=== PATIENT | female | born 1995 | race Caucasian/White ===

== ENCOUNTER 2017-06-28 14:02 | Emergency (ER) | payer OTHER ==
[2017-06-28 14:21] VITALS: BP 116/70
--- NOTE | 2017-06-28 15:12 | UC ---
Respiratory Complaint HPI - HPI Summary HPI Summary: chills head pain frontal sinus congestion, fatigue worsen over past several days - History of Current Complaint Chief Complaint: UCRespiratory Stated Complaint: LIGHTHEADED Time Seen by Provider: 06/28/17 14:58 Hx Obtained From: Patient Hx Last Menstrual Period: 05/31/17 ?: No Onset/Duration: Sudden Onset, Lasting Days - 4, Still Present, Worse Since - past 2 days Timing: Constant Severity Initially: Mild Severity Currently: Moderate Pain Intensity: 6 Pain Scale Used: 0-10 Numeric Aggravating Factors: Nothing Alleviating Factors: Other - no relief with otc medications Associated Signs And Symptoms: Positive: Chills, Nasal Congestion, Sinus Discomfort - Allergies/Home Medications Allergies/Adverse Reactions: Allergies Allergy/AdvReac Type Severity Reaction Status Date / Time No Known Allergies Allergy Verified 06/28/17 14:12 Home Medications: Home Medications Dextromethorphan-Phenylephrine [Day Time Multi-Symptom Co 10-5-325 mg] 1 cap PO PRN 06/28/17 [History] Ibuprofen [Ibuprofen 200] 200 mg PO DAILY PRN 06/28/17 [History Confirmed ] Oral Contraceptive 1 tab PO DAILY 06/28/17 [History Confirmed 06/28/17] PMH/Surg Hx/FS Hx/Imm Hx Previously Healthy: Yes - Surgical History Surgical History: None - Family History Known Family History: Positive: None - Social History Occupation: Employed Full-time Lives: With Family Alcohol Use: None Substance Use Type: None Smoking Status (MU): Never Smoked Tobacco Household Exposure Type: Cigarettes - Immunization History Most Recent Influenza Vaccination: NONE Review of Systems Constitutional: Negative Skin: Negative Eyes: Negative ENT: Negative, Ear Ache, Nasal Discharge, Sinus Congestion, Sinus Pain/ Tenderness Respiratory: Negative Cardiovascular: Negative Gastrointestinal: Negative Genitourinary: Negative Motor: Negative Neurovascular: Negative Musculoskeletal: Negative Neurological: Headache Psychological: Negative Is Patient Immunocompromised?: No All Other Systems Reviewed And Are Negative: Yes Physical Exam Triage Information Reviewed: Yes Appearance: Well-Appearing, Well-Nourished, Pain Distress - mild Vital Signs: Initial Vital Signs Temp 97.9 F 06/28/17 14:14 Pulse 69 06/28/17 14:14 Resp 18 06/28/17 14:14 BP 116/70 06/28/17 14:14 Pulse Ox 99 06/28/17 14:14 Vital Signs Reviewed: Yes Eye Exam: Normal Eyes: Positive: Conjunctiva Clear ENT Exam: Normal ENT: Positive: Normal ENT inspection, Hearing grossly normal, Pharynx normal, Nasal congestion, Nasal drainage, TMs normal, Sinus tenderness, Uvula midline. Negative: Tonsillar swelling, Tonsillar exudate, Trismus, Muffled voice, Hoarse voice Dental Exam: Normal Neck exam: Normal Neck: Positive: Supple, Nontender, No Lymphadenopathy Respiratory Exam: Normal Respiratory: Positive: Chest non-tender, Lungs clear, Normal breath sounds, No respiratory distress, No accessory muscle use Cardiovascular Exam: Normal Cardiovascular: Positive: RRR, No Murmur, Pulses Normal, Brisk Capillary Refill Musculoskeletal Exam: Normal Musculoskeletal: Positive: Strength Intact, ROM Intact, No Edema Neurological Exam: Normal Neurological: Positive: Alert, Muscle Tone Normal Psychological Exam: Normal Skin Exam: Normal UC Diagnostic Evaluation - Laboratory O2 Sat by Pulse Oximetry: 99 Respiratory Course/Dx - Course Course Of Treatment: Flonase Augmentin, increase fluids, tylenol, ibuprofen, rest, follow with pcp - Differential Dx/Diagnosis Provider Diagnoses: Acute Rhinosinusitis Discharge - Discharge Plan Condition: Stable Disposition: HOME Prescriptions: Amoxicillin/Clavulanate TAB* [Augmentin TAB 875*] 875 mg PO BID #20 tab Fluticasone NASAL SPRAY 50MCG* [Flonase NASAL SPRAY 50MCG*] 2 spray BOTH NARES DAILY #1 btl Patient Education Materials: Rhinosinusitis (ED), How to Use Nasal [place] (ED) Forms: *School Release Referrals: [facility] [place] [facility] [Outside] - If Needed
== END 2017-06-28 15:22 | disposition home or self-care (01) ==
LOC: UCCORT 14:02
DX: J01.90 Acute sinusitis, unspecified (principal); Z77.22 Contact with and (suspected) exposure to environmental tobacco smoke (acute) (chronic)
CPT/HCPCS: 99202; G0463

== ENCOUNTER 2017-08-05 15:59 | Emergency (ER) | payer SELFPAY ==
[2017-08-05 16:23] VITALS: BP 113/61
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
== END 2017-08-05 16:47 | disposition home or self-care (01) ==
LOC: UCCORT 15:59
DX: S06.0X0A Concussion without loss of consciousness, initial encounter (principal); R51 Headache; V89.2XXA Person injured in unspecified motor-vehicle accident, traffic, initial encounter; Y92.9 Unspecified place or not applicable
CPT/HCPCS: 99212; G0463

== ENCOUNTER 2017-08-17 15:45 | Emergency (ER) | payer SELFPAY ==
[2017-08-17 16:15] VITALS: BP 103/67
--- NOTE | 2017-08-17 17:16 | ED ---
Abdominal Pain/Female - HPI Summary HPI Summary: 22 yr old female with onset of diarrhea and abdominal pain last night. She has had three episodes of diarrhea watery today and has had crampy left side abdominal pain that is presently gone. She has not had vomiting. She denies having dizziness. She denies having dysuria, frequency. Denies vaginal discharge or bleeding. Pain not worse with movement. Denies fever. - History of Current Complaint Chief Complaint: UCAbdominalPain Stated Complaint: ABDOMINAL PAIN Time Seen by Provider: 08/17/17 17:00 Hx Last Menstrual Period: "I don't really remember." Allergies/Adverse Reactions: Allergies Allergy/AdvReac Type Severity Reaction Status Date / Time No Known Allergies Allergy Verified 08/17/17 16:10 Home Medications: Home Medications NK [No Home Medications Reported] 08/17/17 [History Confirmed 08/17/17] PMH/Surg Hx/FS Hx/Imm Hx Infectious Disease History: No Infectious Disease History: Denies: Traveled Outside the [place] in Last 30 Days - Family History Known Family History: Positive: None - Social History Occupation: Employed Full-time Alcohol Use: None Substance Use Type: Reports: None Smoking Status (MU): Never Smoked Tobacco Review of Systems Constitutional: Negative Positive: Abdominal Pain, Diarrhea. Negative: Vomiting, Nausea Negative: dysuria, discharge, frequency, hematuria, urgency All Other Systems Reviewed And Are Negative: Yes Physical Exam Triage Information Reviewed: Yes Vital Signs On Initial Exam: Initial Vitals Temp Pulse Resp BP Pulse Ox 98.7 F 74 16 103/67 99 08/17/17 16:09 08/17/17 16:09 08/17/17 16:09 08/17/17 16:09 08/17/17 16:09 Vital Signs Reviewed: Yes Appearance: Positive: Well-Appearing, No Pain Distress Skin: Positive: Warm, Skin Color Reflects Adequate Perfusion Eyes: Positive: EOMI ENT: Positive: Pharynx normal, TMs normal Neck: Positive: Nontender Respiratory/Lung Sounds: Positive: Clear to Auscultation, Breath Sounds Present Cardiovascular: Positive: RRR. Negative: Murmur Abdomen Description: Positive: Nontender, Soft. Negative: Distended Musculoskeletal: Positive: Strength/ROM Intact Neurological: Positive: Sensory/Motor Intact, Alert, Oriented to Person Place, Time, CN Intact II-III Psychiatric: Positive: Normal - Rodrigo Coma Scale Best Eye Response: 4 - Spontaneous Best Motor Response: 6 - Obeys Commands Best Verbal Response: 5 - Oriented Diagnostics - Vital Signs Vital Signs Temp Pulse Resp BP Pulse Ox 08/17/17 16:09 98.7 F 74 16 103/67 99 - Laboratory Lab Results: Lab Results 08/17/17 08/17/17 Range/Units 16:52 16:54 POC Urine Color Yellow POC Urine Clarity Clear POC Urine pH 6.0 (5-9) POC Ur Specif [place] 1.015 (1.010-1.030) POC Urine Protein Negative (Negative) POC Ur Glucose (UA) Negative (Negative) POC Urine Ketones Negative (Negative) POC Urine Blood Negative (Negative) POC Urine Nitrite Negative (Negative) POC Urine Bilirubin Negative (Negative) POC Urine Urobilinogen 0.2 (Negative) POC U Leukocyte Esteras Negative (Negative) POC Ur Test Negative (Negative) Lab Statement: Any lab studies that have been ordered have been reviewed, and results considered in the medical decision making process. Abdominal Pain Fem Course/Dx - Course Course Of Treatment: 22 yr old with diarrhea and no abdomial pain presently. She is being discharged home, and if her pain returns and becomes worse she is to go to the ER for further work up. - Diagnoses Provider Diagnoses: Diarrhea, Abdominal pain Discharge - Discharge Plan Condition: Good Disposition: HOME Patient Education Materials: Acute Diarrhea (ED), Abdominal Pain (ED) Referrals: [facility] [place] [facility] [Outside] No Primary Care Phys,NOPCP [Primary Care Provider] -
== END 2017-08-17 17:19 | disposition home or self-care (01) ==
LOC: UCCORT 15:45
DX: R19.7 Diarrhea, unspecified (principal); R10.9 Unspecified abdominal pain; Z32.02 Encounter for pregnancy test, result negative
CPT/HCPCS: 81003; 84702; 99211; G0463

== ENCOUNTER 2018-05-27 14:51 | Emergency (ER) | payer OTHER ==
[2018-05-27 15:28] VITALS: BP 111/60
[2018-05-27] MEDS ORDERED: Dexamethasone IV* 4 MG/ML 1 ML (4 MG) IV SLOW PU ONE (16:19)
--- NOTE | 2018-05-27 16:25 | UC ---
UC General HPI - HPI Summary HPI Summary: SORE THROAT SINCE YESTERDAY AND LOSS OF VOICE. - History of Current Complaint Chief Complaint: UCRespiratory Stated Complaint: ST Time Seen by Provider: 05/27/18 16:14 Hx Obtained From: Patient Hx Last Menstrual Period: 05/10/18 Onset/Duration: Gradual Onset Timing: Constant Pain Intensity: 3 Associated Signs & Symptoms: Negative: Fever, SOB - Allergy/Home Medications Allergies/Adverse Reactions: Allergies Allergy/AdvReac Type Severity Reaction Status Date / Time No Known Allergies Allergy Verified 08/17/17 16:10 Home Medications: Home Medications Ibuprofen TAB* [Motrin TAB* 400 MG] 400 mg PO ONCE PRN 05/27/18 [History Confirmed 05/27/18] PMH/Surg Hx/FS Hx/Imm Hx Previously Healthy: Yes - Surgical History Surgical History: None - Family History Known Family History: Positive: None - Social History Occupation: Employed Full-time Lives: With Family Alcohol Use: None Substance Use Type: None Smoking Status (MU): Never Smoked Tobacco Household Exposure Type: Cigarettes - Immunization History Most Recent Influenza Vaccination: NONE Vaccination Up to Date: Yes Review of Systems Constitutional: Negative Skin: Negative Eyes: Negative ENT: Sore Throat Respiratory: Negative Cardiovascular: Negative Gastrointestinal: Negative Genitourinary: Negative Motor: Negative Neurovascular: Negative Musculoskeletal: Negative Neurological: Negative Psychological: Negative Is Patient Immunocompromised?: No All Other Systems Reviewed And Are Negative: Yes Physical Exam Triage Information Reviewed: Yes Appearance: Well-Appearing Vital Signs: Initial Vital Signs Temp 98.7 F 05/27/18 15:22 Pulse 60 05/27/18 15:22 Resp 18 05/27/18 15:22 BP 111/60 05/27/18 15:22 Pulse Ox 100 05/27/18 15:22 Vital Signs Reviewed: Yes Eyes: Positive: Conjunctiva Clear ENT: Positive: Pharyngeal erythema, TMs normal, Hoarse voice, Uvula midline. Negative: Nasal congestion, Nasal drainage, Tonsillar swelling, Tonsillar exudate, Trismus, Muffled voice Neck: Positive: Supple, Nontender, No Lymphadenopathy Respiratory: Positive: Lungs clear, Normal breath sounds Cardiovascular: Positive: RRR, No Murmur Abdomen Description: Positive: Nontender, No Organomegaly, Soft Bowel Sounds: Positive: Present Musculoskeletal: Positive: ROM Intact Neurological: Positive: Alert Psychological: Positive: Age Appropriate Behavior Skin Exam: Normal Diagnostics - Laboratory Diagnostic Studies Completed/Ordered: RAPID STREP=NEG Course/Dx - Differential Dx - Multi-Symptom Provider Diagnoses: SORE THROAT. LARYNGITIS Discharge - Sign-Out/Discharge Documenting (check all that apply): Patient Departure All imaging exams completed and their final reports reviewed: No Studies - Discharge Plan Condition: Stable Disposition: HOME Patient Education Materials: Laryngitis (ED), Pharyngitis (ED) Forms: *Work Release Referrals: Shiraz Sellers PA [Primary Care Provider] - 7 Days - Billing Disposition and Condition Condition: STABLE Disposition: Home
== END 2018-05-27 16:45 | disposition home or self-care (01) ==
LOC: UCCORT 14:51
DX: J02.9 Acute pharyngitis, unspecified (principal); J04.0 Acute laryngitis
CPT/HCPCS: 87651; 99211; G0463; J1100

== ENCOUNTER 2018-07-02 08:16 | Emergency (ER) | payer OTHER ==
--- OUTSIDE RECORDS SUMMARY | 2018-07-02 08:30 | XMS REPORT | Continuity of Care Document ---
:1995 Author Organization [facility] Care Team Providers Name Role Phone JAYME HEATON Admitting Physician JAYME HEATON Attending Physician Allergies and Intolerances No Known Allergies Medications Patient Not On Self-Medication Problems Code Code System Problem Name Start Date End Date Status 45270728 SNOMED-CT Anxiety U Active Procedures No data in the system Results No data in the system Social History Code Code System Social History Observation Description Dates Observed 308406209 SNOMED CT Current Smoking Status Never smoker UNK AdministrativeGender Sex Assigned At Unknown Vital Signs Code Code System Vitals Value Date 8310-5 INC Body Temperature 97.4 [degF] 06/07/2018 8865-8 INC Pulse Rate 64 {beats}/min 06/07/2018 9279-1 INC Respiratory Rate 18 /min 06/07/2018 53258-1 INC O2% BldC Oximetry 97 % 06/07/2018 8480-6 LOINC BP Systolic 123 mm[Hg] 06/07/2018 8462-4 LOINC BP Diastolic 75 mm[Hg] 06/07/2018 8302-2 LOINC Height 66 [in_i] 06/07/2018 57734-8 LOINC Weight 69.54 kg 06/07/2018 3140-1 INC Body surface area Derived from formula 1.79 m2 06/07/2018 93140-2 INC BMI (Body Mass Index) 24.9 kg/m2 06/07/2018 Goals Section No data in the system Health Concerns No data in the systemEncounter Diagnosis Date Code Code System Diagnosis Status J06.9 ICD10 ACUTE UP RESPIRATORY INFECTION UNS Active Advance Directives PT STATES NO ADVANCE DIRECTIVES Directive Type Effective Date Storage Administrator Notes Supporting Document Name Address Phone No Directive Type 02/10/2017 1:44:00 Not Specified Not Specified Not Specified None No specified PM *RHIO - CONSENT IS YES Directive Type Effective Date Storage Administrator Notes Supporting Document Name Address Phone No Directive Type 07/21/2016 Not Specified Not Specified Not Specified None No specified 12:36:10 PM Family History Patient has no knowledge of family history Functional Status Code Functional Condition Code System Date Status Independent adls SNOMED CT 06/07/2018 Active Appears well [facility]ished[facility] 06/07/2018 Active Immunizations Vaccine Code Code System Vaccine Name Date Status UTD Completed Medical Equipment No data in the system Mental Status Code Cognitive Condition Code System Date Status Oriented x [address] 06/07/2018 Active No acute distress [facility] 06/07/2018 Active Alert [facility] 06/07/2018 Active Assessment and Plan Assessments No data in the systemPlan Of Treatment No data in the systemPending Tests No data in the system Hospital Discharge Instructions No data in the system Reason for Visit Reason for Visit Cough
[2018-07-02 08:34] VITALS: BP 113/62
--- NOTE | 2018-07-02 08:56 | UC ---
Back Pain HPI - HPI Summary HPI Summary: Patient was moving boxes and felt a pull on the left side of her back, she has full ROM but is in pain. - History of Current Complaint Chief Complaint: UCBackPain Stated Complaint: LOW BACK COMPLAINT Time Seen by Provider: 07/02/18 08:34 Hx Obtained From: Patient Hx Last Menstrual Period: 06/06/18 ?: No Onset/Duration: Sudden Onset, Lasting Days - 1 Timing: Constant Severity Initially: Severe Severity Currently: Severe Pain Intensity: 8 Character: Aching, Stiffness Aggravating Factor(s): Movement Alleviating Factor(s): Heat Associated Signs And Symptoms: Positive: Negative - Allergies/Home Medications Allergies/Adverse Reactions: Allergies Allergy/AdvReac Type Severity Reaction Status Date / Time No Known Allergies Allergy Verified 07/02/18 08:29 Home Medications: Home Medications Ibuprofen TAB* [Advil TAB*] 200 mg PO Q6H PRN 07/02/18 [History Confirmed ] PMH/Surg Hx/FS Hx/Imm Hx Previously Healthy: Yes - Surgical History Surgical History: None - Family History Known Family History: Positive: None Negative: Hypertension - Social History Alcohol Use: None Substance Use Type: None Smoking Status (MU): Never Smoked Tobacco Household Exposure Type: Cigarettes - Immunization History Most Recent Influenza Vaccination: NONE Vaccination Up to Date: Yes Review of Systems All Other Systems Reviewed And Are Negative: Yes Musculoskeletal: Positive: Arthralgia, Myalgia Is Patient Immunocompromised?: No Physical Exam Triage Information Reviewed: Yes Appearance: Well-Appearing, Well-Nourished, Pain Distress Vital Signs: Initial Vital Signs Temp 97.8 F 07/02/18 08:30 Pulse 57 07/02/18 08:30 Resp 14 07/02/18 08:30 BP 113/62 07/02/18 08:30 Pulse Ox 100 07/02/18 08:30 Vital Signs Reviewed: Yes Eye Exam: Normal ENT Exam: Normal Dental Exam: Normal Neck exam: Normal Cardiovascular Exam: Normal Abdominal Exam: Normal Musculoskeletal: Positive: Strength Intact, ROM Intact, No Edema Neurological Exam: Normal Psychological Exam: Normal Skin Exam: Normal Back Pain Course/Dx - Course Course Of Treatment: hx obtained, exam performed, meds reviewed, educated on OTC NSAIDS for muscle pain - Differential Dx/Diagnosis Differential Diagnosis/HQI/PQRI: Strain, Sprain Provider Diagnosis: Muscle strain of right upper back Discharge - Sign-Out/Discharge Documenting (check all that apply): Patient Departure All imaging exams completed and their final reports reviewed: No Studies - Discharge Plan Condition: Stable Disposition: HOME Patient Education Materials: Muscle Strain (ED) Forms: *Work Release Referrals: Shiraz Sellers PA [Primary Care Provider] - Additional Instructions: 1. Use heat to the back multiple times a day. 2. Ibuprofen 400- 60 0mg every 4-6 hours for the next few days. always take with a couple bites of food. 3. Take it easy for the next few days, follow up if not improving int he next 48 hours - Billing Disposition and Condition Condition: STABLE Disposition: Home
== END 2018-07-02 09:08 | disposition home or self-care (01) ==
LOC: UCCORT 08:16
DX: S23.3XXA Sprain of ligaments of thoracic spine, initial encounter (principal); X50.0XXA Overexertion from strenuous movement or load, initial encounter; Y93.89 Activity, other specified; Y92.9 Unspecified place or not applicable
CPT/HCPCS: 99211; G0463

== ENCOUNTER 2018-07-28 09:33 | Emergency (ER) | payer OTHER ==
[2018-07-28 13:08] VITALS: BP 101/55
--- NOTE | 2018-07-28 13:21 | UC ---
Throat Pain/Nasal Shashank HPI - HPI Summary HPI Summary: Pt presents with sudden onset of nasal congestion, sinus pressure and generalized malaise x 1 day. Pt has not tried any otc medication to relieve symptoms. - History of Current Complaint Chief Complaint: UCGeneralIllness Stated Complaint: HEAD COLD,HEADACHE Time Seen by Provider: 07/28/18 13:04 Hx Obtained From: Patient Hx Last Menstrual Period: 07/06/18 ?: No Onset/Duration: Sudden Onset Severity: Severe Pain Intensity: 9 Cough: None Associated Signs & Symptoms: Positive: Sinus Discomfort, Nasal Discharge - Epiglottits Risk Factors Epiglottis Risk Factors: Sudden Onset - Allergies/Home Medications Allergies/Adverse Reactions: Allergies Allergy/AdvReac Type Severity Reaction Status Date / Time No Known Allergies Allergy Verified 07/28/18 13:05 PMH/Surg Hx/FS Hx/Imm Hx Previously Healthy: Yes - Surgical History Surgical History: None - Family History Known Family History: Positive: None Negative: Hypertension - Social History Occupation: Employed Full-time Lives: With Family Alcohol Use: None Substance Use Type: None Smoking Status (MU): Never Smoked Tobacco Have You Smoked in the Last Year: No Household Exposure Type: Cigarettes - Immunization History Most Recent Influenza Vaccination: NONE Vaccination Up to Date: Yes Review of Systems All Other Systems Reviewed And Are Negative: Yes Constitutional: Positive: Chills, Fatigue Skin: Positive: Negative Eyes: Positive: Negative ENT: Positive: Sore Throat, Sinus Congestion, Sinus Pain/Tenderness Respiratory: Positive: Cough Cardiovascular: Positive: Negative Gastrointestinal: Positive: Negative Genitourinary: Positive: Negative Motor: Positive: Negative Neurovascular: Positive: Negative Musculoskeletal: Positive: Negative Neurological: Positive: Headache Psychological: Positive: Negative Is Patient Immunocompromised?: No Physical Exam Triage Information Reviewed: Yes Appearance: Ill-Appearing Vital Signs: Initial Vital Signs Temp 98.1 F 07/28/18 13:03 Pulse 61 07/28/18 13:03 Resp 18 07/28/18 13:03 BP 101/55 07/28/18 13:03 Pulse Ox 100 07/28/18 13:03 Vital Signs Reviewed: Yes Eye Exam: Normal ENT: Positive: Nasal congestion, Sinus tenderness Dental Exam: Normal Neck exam: Normal Respiratory Exam: Normal Cardiovascular Exam: Normal Musculoskeletal Exam: Normal Neurological Exam: Normal Psychological Exam: Normal Skin Exam: Normal Throat Pain/Nasal Course/Dx - Differential Dx/Diagnosis Differential Diagnosis/HQI/PQRI: Sinusitis, Tonsillitis, URI Provider Diagnosis: Acute viral syndrome Discharge - Sign-Out/Discharge Documenting (check all that apply): Patient Departure All imaging exams completed and their final reports reviewed: No Studies - Discharge Plan Condition: Stable Disposition: HOME Prescriptions: Guaifenesin/Pseudoephedrne HCl [Mucinex D ER 600-60 mg Tablet] 1 each PO Q12H # 14 tab.er.12h Patient Education Materials: Viral Syndrome (ED) Forms: *Work Release Referrals: Shiraz Sellers PA [Primary Care Provider] - If Needed - Billing Disposition and Condition Condition: STABLE Disposition: Home - Attestation Statements Provider Attestation: Per institutional requirements, I have reviewed the chart, however, I was not consulted specifically or made aware of this patient by the midlevel provider. I did not personally evaluate, interact with , or disposition this patient.
== END 2018-07-28 13:27 | disposition home or self-care (01) ==
LOC: UCCORT 09:33
DX: B34.9 Viral infection, unspecified (principal)
CPT/HCPCS: 99211; G0463

== ENCOUNTER 2018-07-30 08:04 | Emergency (ER) | payer OTHER ==
[2018-07-30 08:15] VITALS: BP 121/75
--- NOTE | 2018-07-30 08:23 | UC ---
General HPI - HPI Summary HPI Summary: pt states seen here 2 days ago and prescribed mucinex D. she is not improving and her sinus pressure is pretty severe. describes thi as day 4 with sinus congestion, pressure and purulent drainage with subjective fever and chills. + sore throat from post nasal drip and cough with congestion but no sob, wheezing or hx asthma. - History of Current Complaint Chief Complaint: UCGeneralIllness Stated Complaint: RECHECK SINUS PRESSURE, SORE THROAT Time Seen by Provider: 07/30/18 08:14 Hx Obtained From: Patient Hx Last Menstrual Period: 07/06/18 Onset/Duration: Gradual Onset Timing: Constant Pain Intensity: 8 Associated Signs & Symptoms: Positive: Headache. Negative: Chest Pain, Hemoptysis - Allergy/Home Medications Allergies/Adverse Reactions: Allergies Allergy/AdvReac Type Severity Reaction Status Date / Time No Known Allergies Allergy Verified 07/30/18 08:12 PMH/Surg Hx/FS Hx/Imm Hx Previously Healthy: Yes - Surgical History Surgical History: None - Family History Known Family History: Positive: None Negative: Hypertension - Social History Occupation: Employed Full-time Alcohol Use: None Substance Use Type: None Smoking Status (MU): Never Smoked Tobacco Have You Smoked in the Last Year: No Household Exposure Type: Cigarettes - Immunization History Most Recent Influenza Vaccination: NONE Vaccination Up to Date: Yes Review of Systems All Other Systems Reviewed And Are Negative: Yes Constitutional: Positive: Fever - subjective, Chills ENT: Positive: Sore Throat, Nasal Discharge, Sinus Congestion, Sinus Pain/ Tenderness Is Patient Immunocompromised?: No Physical Exam Triage Information Reviewed: Yes Appearance: Well-Appearing Vital Signs: Initial Vital Signs Temp 98.9 F 07/30/18 08:12 Pulse 78 07/30/18 08:12 Resp 16 07/30/18 08:12 BP 121/75 07/30/18 08:12 Pulse Ox 97 07/30/18 08:12 Vital Signs Reviewed: Yes Eyes: Positive: Conjunctiva Clear ENT: Positive: Pharynx normal, Nasal congestion, TMs normal, Sinus tenderness - maxillax2. Negative: Nasal drainage Neck: Positive: Supple, Nontender, No Lymphadenopathy Respiratory: Positive: Lungs clear, Normal breath sounds, No respiratory distress Cardiovascular: Positive: RRR, No Murmur Abdomen Description: Positive: Nontender, No Organomegaly, Soft Bowel Sounds: Positive: Present Musculoskeletal: Positive: ROM Intact Neurological: Positive: Alert Psychological: Positive: Age Appropriate Behavior Skin Exam: Other - Face flushed and warm. Course/Dx - Course Course Of Treatment: no concern for pneumonia. during stay, pt notes tx not helping and is feeling worse. will have pt try otc tx for 1-2 more days, if not improving she will start the augmentin. she will start it sooner if worse. - Diagnoses Provider Diagnosis: Sinusitis, Sore throat, Cough Discharge - Sign-Out/Discharge Documenting (check all that apply): Patient Departure All imaging exams completed and their final reports reviewed: No Studies - Discharge Plan Condition: Stable Disposition: HOME Prescriptions: Amoxicillin/Clavulanate TAB* [Augmentin TAB 875*] 875 mg PO BID 10 Days #20 tab Patient Education Materials: Sinusitis (ED) Forms: *Work Release Referrals: Shiraz Sellers PA [Primary Care Provider] - 7 Days Additional Instructions: If not improved in 1-2 days , start the antibiotic. start it sooner if worsening. Continue the mucinex d. - Billing Disposition and Condition Condition: STABLE Disposition: Home
== END 2018-07-30 08:30 | disposition home or self-care (01) ==
LOC: UCCORT 08:04
DX: Z51.89 Encounter for other specified aftercare (principal); J32.9 Chronic sinusitis, unspecified; J02.9 Acute pharyngitis, unspecified; R05 Cough
CPT/HCPCS: 99212; G0463

== ENCOUNTER 2018-08-09 09:00 | Emergency (ER) | payer OTHER ==
[2018-08-09 09:40] VITALS: BP 107/66
--- NOTE | 2018-08-09 09:59 | UC ---
Respiratory Complaint HPI - HPI Summary HPI Summary: cough x 3 days + nasal congestion , pnd , cough is dry , has been having some dizziness, nausea and vomiting no abdominal pain , no diarrhea, no fever or chills - History of Current Complaint Chief Complaint: UCRespiratory Stated Complaint: HEADACHE,DIZZINESS Time Seen by Provider: 08/09/18 09:54 Hx Obtained From: Patient Hx Last Menstrual Period: 08/08/18 ?: No Onset/Duration: Gradual Onset, Lasting Days - 3, Still Present Timing: Constant Severity Initially: Moderate Severity Currently: Moderate Pain Intensity: 10 Character: Cough: Nonproductive Aggravating Factors: Exertion, Deep Breaths Alleviating Factors: Nothing Associated Signs And Symptoms: Positive: URI, Nasal Congestion. Negative: Dyspnea, Fever, Chills, Pleuritic Chest Pain, Wheezing, Hemoptysis, Dizziness, Calf Pain, Calf Swelling, Edema, Hoarseness, Sinus Discomfort - Allergies/Home Medications Allergies/Adverse Reactions: Allergies Allergy/AdvReac Type Severity Reaction Status Date / Time No Known Allergies Allergy Verified 08/09/18 09:34 Home Medications: Home Medications Acetaminophen TAB* [Tylenol TAB*] 650 mg PO Q4H PRN 08/09/18 [History Confirmed 08/09/18] PMH/Surg Hx/FS Hx/Imm Hx Previously Healthy: Yes - Surgical History Surgical History: None - Family History Known Family History: Positive: None Negative: Hypertension - Social History Alcohol Use: None Substance Use Type: None Smoking Status (MU): Never Smoked Tobacco Have You Smoked in the Last Year: No Household Exposure Type: Cigarettes - Immunization History Most Recent Influenza Vaccination: NONE Vaccination Up to Date: Yes Review of Systems All Other Systems Reviewed And Are Negative: Yes Constitutional: Positive: Negative Skin: Positive: Negative Eyes: Positive: Negative ENT: Positive: Sore Throat, Ear Ache, Nasal Discharge Respiratory: Positive: Cough Cardiovascular: Positive: Negative Gastrointestinal: Positive: Vomiting, Nausea. Negative: Abdominal Pain, Diarrhea Genitourinary: Positive: Negative Is Patient Immunocompromised?: No Physical Exam Triage Information Reviewed: Yes Appearance: Well-Appearing, No Pain Distress, Well-Nourished Vital Signs: Initial Vital Signs Temp 97.3 F 08/09/18 09:35 Pulse 55 08/09/18 09:35 Resp 15 08/09/18 09:35 BP 107/66 08/09/18 09:35 Pulse Ox 98 01/08/19 09:35 Eye Exam: Normal Eyes: Positive: Conjunctiva Clear ENT: Positive: Normal ENT inspection, Hearing grossly normal, Pharynx normal, Nasal congestion, TMs normal. Negative: TM bulging, TM dull, TM red, Tonsillar swelling, Tonsillar exudate Neck: Positive: Supple, Nontender, No Lymphadenopathy Respiratory: Positive: Chest non-tender, Lungs clear, Normal breath sounds Cardiovascular: Positive: RRR, No Murmur, Pulses Normal Abdominal Exam: Normal Abdomen Description: Positive: Nontender, Soft. Negative: CVA Tenderness (R), CVA Tenderness (L), Distended, Guarding Bowel Sounds: Positive: Present Skin Exam: Normal UC Diagnostic Evaluation - Laboratory O2 Sat by Pulse Oximetry: 98 Respiratory Course/Dx - Differential Dx/Diagnosis Provider Diagnosis: Viral illness Discharge - Sign-Out/Discharge Documenting (check all that apply): Patient Departure All imaging exams completed and their final reports reviewed: No Studies - Discharge Plan Condition: Stable Disposition: HOME Patient Education Materials: Viral Syndrome (ED) Forms: *Work Release Referrals: Shiraz Sellers PA [Primary Care Provider] - If Needed - Billing Disposition and Condition Condition: STABLE Disposition: Home
== END 2018-08-09 09:58 | disposition home or self-care (01) ==
LOC: UCCORT 09:00
DX: B34.9 Viral infection, unspecified (principal)
CPT/HCPCS: 99211; G0463

== ENCOUNTER 2018-12-10 20:26 | Emergency (ER) | payer SELFPAY ==
[2018-12-10 20:41] VITALS: BP 122/59
[2018-12-10] MEDS ORDERED: Ondansetron ODT TAB* 4 MG PO ONE (21:12)
--- NOTE | 2018-12-10 21:14 | UC ---
Nausea/Vomiting/Diarrhea HPI - HPI Summary HPI Summary: 23-year-old woman comes in with chief complaint of 2 days of nausea vomiting diarrhea fevers and headaches. She's been taking care of her mother and father who have had the same symptoms for about 2 days and advance her. They are starting to improve. She is having intermittent abdominal cramping primarily in the left lower quadrant. The cramping comes and goes. She has been able to drink some water and other liquids but no solids. Every time she eats solids she throws up. - History of Current Complaint Chief Complaint: UCGeneralIllness Stated Complaint: HEADACHE/CHILLS/ABDOMINAL PAIN/VOMITING Time Seen by Provider: 12/10/18 20:45 Hx Last Menstrual Period: 12/05/18 Pain Intensity: 6 - Allergies/Home Medications Allergies/Adverse Reactions: Allergies Allergy/AdvReac Type Severity Reaction Status Date / Time No Known Allergies Allergy Verified 12/10/18 20:37 PMH/Surg Hx/FS Hx/Imm Hx Previously Healthy: Yes - Surgical History Surgical History: None - Family History Known Family History: Positive: None Negative: Hypertension - Social History Alcohol Use: Rare Substance Use Type: None Smoking Status (MU): Never Smoked Tobacco Have You Smoked in the Last Year: No Household Exposure Type: Cigarettes - Immunization History Most Recent Influenza Vaccination: NONE Vaccination Up to Date: Yes Review of Systems All Other Systems Reviewed And Are Negative: Yes Constitutional: Positive: Fever, Chills Skin: Positive: Negative Eyes: Positive: Negative ENT: Positive: Negative Respiratory: Positive: Negative Cardiovascular: Positive: Negative Gastrointestinal: Positive: Abdominal Pain, Vomiting, Diarrhea, Nausea Genitourinary: Positive: Negative Motor: Positive: Negative Neurovascular: Positive: Negative Musculoskeletal: Positive: Negative Neurological: Positive: Negative Psychological: Positive: Negative Is Patient Immunocompromised?: No Physical Exam Triage Information Reviewed: Yes Appearance: No Pain Distress, Well-Nourished, Ill-Appearing - MILD Vital Signs: Initial Vital Signs Temp 98.7 F 12/10/18 20:38 Pulse 75 12/10/18 20:38 Resp 16 12/10/18 20:38 BP 122/59 12/10/18 20:38 Pulse Ox 97 12/10/18 20:38 Vital Signs Reviewed: Yes Eye Exam: Normal Eyes: Positive: Conjunctiva Clear Neck: Positive: Supple Respiratory: Positive: Lungs clear, Normal breath sounds, No respiratory distress Cardiovascular: Positive: RRR Abdomen Description: Positive: Soft, Other: - MINIMAL TENDERNESS TO PALPATION LLQ. NO RLQ TENDERNESS. Bowel Sounds: Positive: Present Musculoskeletal Exam: Normal Musculoskeletal: Positive: Strength Intact, ROM Intact Neurological Exam: Normal Neurological: Positive: Alert, Muscle Tone Normal Psychological Exam: Normal Psychological: Positive: Age Appropriate Behavior Skin Exam: Normal Naus/Vom/Diarrhea Course/Dx - Course Course Of Treatment: Patient's left lower quadrant abdominal pain comes and goes. Her parents both had similar symptoms in the improving. Discussed with the patient that if the pain comes and stays or she feels worse she needs to be reevaluated right away. - Differential Dx/Diagnosis Provider Diagnosis: Nausea vomiting and diarrhea, Headache, Fever Condition At Discharge: Stable Discharge - Sign-Out/Discharge Documenting (check all that apply): Patient Departure All imaging exams completed and their final reports reviewed: No Studies - Discharge Plan Condition: Stable Disposition: HOME Prescriptions: Ondansetron ODT TAB* [Zofran 4 MG Odt TAB*] 4 mg PO Q6H PRN #10 tab.odt PRN Reason: Nausea Patient Education Materials: Fever in Adults (ED), Acute Headache (ED), Acute Nausea and Vomiting (ED), Acute Diarrhea (ED) Forms: *Work Release Referrals: Shiraz Sellers PA [Primary Care Provider] - Additional Instructions: FOLLOW UP WITH YOUR DOCTOR IF NOT COMPLETELY IMPROVED. GET RECHECKED SOONER IF YOUR CONDITION WORSENS; ABDOMINAL PAIN, DEHYDRATION, YOU FEEL ILL OR ANY QUESTIONS OR CONCERNS. - Billing Disposition and Condition Condition: STABLE Disposition: Home
== END 2018-12-10 21:27 | disposition home or self-care (01) ==
LOC: UCCORT 20:26
DX: R11.2 Nausea with vomiting, unspecified (principal); R19.7 Diarrhea, unspecified; R51 Headache; R50.9 Fever, unspecified
CPT/HCPCS: 81003; 84702; 99212; A9270-GY; G0463

== ENCOUNTER 2019-09-27 13:11 | Emergency (ER) | payer OTHER ==
[2019-09-27 14:01] VITALS: BP 112/69
[2019-09-27 14:57] LABS: Influenza A Molecular Negative (Negative); Influenza B Molecular Negative (Negative)
--- NOTE | 2019-09-27 15:12 | UC ---
Throat Pain/Nasal Shashank HPI - HPI Summary HPI Summary: 24-year-old female comes in with a chief complaint of upper respiratory tract infection symptoms for 2 weeks. Patient's been having runny nose sore throat cough chest congestion. Is started to improve about 5 days ago and then 3 days ago he got a lot worse. She's having sinus pressure. She has been using ibuprofen and a cough medicine and also a nasal spray. His medicines help some with the symptoms but overall she's getting worse rather than better. Rhinorrhea and sputum is yellow and green. No history of asthma. Patient feels her sinuses are more irritating to her than her chest congestion. - History of Current Complaint Chief Complaint: UCGeneralIllness Stated Complaint: BODY ACHES,CHILLS Time Seen by Provider: 09/27/19 14:44 Hx Last Menstrual Period: 09/2019 Pain Intensity: 9 - Allergies/Home Medications Allergies/Adverse Reactions: Allergies Allergy/AdvReac Type Severity Reaction Status Date / Time No Known Allergies Allergy Verified 09/27/19 13:57 Home Medications: Home Medications Amoxicillin/Clavulanate TAB* [Augmentin TAB 875*] 875 mg PO BID #20 tab [Rx] Dextromethorphan Polistirex [Robitussin ER] 1 dose PO ONCE 09/27/19 [History Confirmed 09/27/19] Fluticasone NASAL SPRAY 50MCG* [Flonase NASAL SPRAY 50MCG*] 2 spray BOTH NARES DAILY #1 btl 09/27/19 [Rx] Ibuprofen TAB* [Advil TAB*] 400 mg PO Q6H PRN 09/27/19 [History Confirmed ] PMH/Surg Hx/FS Hx/Imm Hx Previously Healthy: Yes - Surgical History Surgical History: None - Family History Known Family History: Positive: None Negative: Hypertension - Social History Alcohol Use: None Substance Use Type: None Smoking Status (MU): Never Smoked Tobacco Have You Smoked in the Last Year: No Household Exposure Type: Cigarettes - Immunization History Most Recent Influenza Vaccination: NONE Vaccination Up to Date: Yes Review of Systems All Other Systems Reviewed And Are Negative: Yes Constitutional: Positive: Other - see hpi Skin: Positive: Negative Eyes: Positive: Negative ENT: Positive: Sore Throat, Nasal Discharge, Sinus Congestion, Sinus Pain/ Tenderness Respiratory: Positive: Cough, Other - see hpi Cardiovascular: Positive: Negative Gastrointestinal: Positive: Negative Motor: Positive: Negative Neurovascular: Positive: Negative Musculoskeletal: Positive: Negative Neurological/Mental Status: Positive: Headache Psychological: Positive: Negative Is Patient Immunocompromised?: No Physical Exam Triage Information Reviewed: Yes Appearance: No Pain Distress, Well-Nourished, Ill-Appearing - mild Vital Signs: Initial Vital Signs Temp 98.0 F 09/27/19 13:58 Pulse 69 09/27/19 13:58 Resp 17 09/27/19 13:58 BP 112/69 09/27/19 13:58 Pulse Ox 100 09/27/19 13:58 Vital Signs Reviewed: Yes Eye Exam: Normal Eyes: Positive: Conjunctiva Clear ENT: Positive: Pharyngeal erythema, Nasal congestion, Nasal drainage, TMs normal , Sinus tenderness Neck: Positive: Supple Respiratory: Positive: Lungs clear, Normal breath sounds, No respiratory distress Cardiovascular: Positive: RRR Musculoskeletal: Positive: Strength Intact, ROM Intact Neurological: Positive: Alert, Muscle Tone Normal Psychological: Positive: Age Appropriate Behavior Skin Exam: Normal Throat Pain/Nasal Course/Dx - Course Course Of Treatment: Influenza is negative. Patient's having symptoms for 2 weeks therefore we will treat with antibiotics and also Flonase. I recommended stopping the nasal spray that she has been using in case there is a decongestant and making her overall symptoms worse. Patient's reevaluated if not improved or any questions or concerns. - Differential Dx/Diagnosis Provider Diagnosis: Sinusitis Discharge ED - Sign-Out/Discharge Documenting (check all that apply): Patient Departure All imaging exams completed and their final reports reviewed: No Studies - Discharge Plan Condition: Stable Disposition: HOME Prescriptions: Amoxicillin/Clavulanate TAB* [Augmentin TAB 875*] 875 mg PO BID #20 tab Fluticasone NASAL SPRAY 50MCG* [Flonase NASAL SPRAY 50MCG*] 2 spray BOTH NARES DAILY #1 btl Patient Education Materials: Sinusitis (ED) Forms: *Work Release Referrals: Shiraz Sellers PA [Primary Care Provider] - Additional Instructions: FOLLOW UP WITH YOUR DOCTOR IF NOT COMPLETELY IMPROVED. Drink plenty of water. You can use salt water nasal saline spray. Use steam to help loosen nasal secretions. GET REEVALUATED SOONER IF NOT IMPROVED OR WORSE OR ANY QUESTIONS OR CONCERNS. - Billing Disposition and Condition Condition: STABLE Disposition: Home
== END 2019-09-27 15:17 | disposition home or self-care (01) ==
LOC: UCCORT 13:11
DX: J32.9 Chronic sinusitis, unspecified (principal); J39.2 Other diseases of pharynx
CPT/HCPCS: 99212; G0463